=== PATIENT | male | born 1995 | race Asian ===

== ENCOUNTER → 2018-04-13 | Outpatient (CLI) | payer BC | END | disposition home or self-care (01) | LOC: RAD 12:42 | DX: S13.4XXA Sprain of ligaments of cervical spine, initial encounter (principal); X58.XXXA Exposure to other specified factors, initial encounter | CPT/HCPCS: 72050 ==

== ENCOUNTER 2018-06-08 18:51 | Emergency (ER) | payer BC | END 2018-06-08 21:52 | disposition home or self-care (01) | LOC: FTE 18:51 | DX: S39.012A Strain of muscle, fascia and tendon of lower back, initial encounter (principal); R40.2252 Coma scale, best verbal response, oriented, at arrival to emergency department; R40.2362 Coma scale, best motor response, obeys commands, at arrival to emergency department; R40.2142 Coma scale, eyes open, spontaneous, at arrival to emergency department; V49.40XA Driver injured in collision with unspecified motor vehicles in traffic accident, initial encounter; Z87.891 Personal history of nicotine dependence | CPT/HCPCS: 72100; 73550; 99284-25 ==

== ENCOUNTER 2019-02-20 11:47 | Inpatient (IN) | payer BC ==
[2019-02-20] MEDS: DICYCLOMINE 10 MG CAP PO (12:33)
[2019-02-20] MEDS: LIDOCAINE/MYLANTA 40 ML BTL PO (12:34)
[2019-02-20] MEDS: SOD CHLORIDE 0.9% 1,000 ML IV ×2 (13:31→15:15)
[2019-02-20 13:38] LABS: ADD MAN DIFF? NO
[2019-02-20 13:41] LABS: BASOPHILS % 0.3 % (0.0-2.0); HEMATOCRIT 43.9 % (42.0-52.0); HEMOGLOBIN 15.1 g/dl (14.0-18.0); LYMPHOCYTES # 1.3 10^3/ul (0.8-2.9); LYMPHOCYTES % 8.1 % (15.0-51.0); MEAN CORPUSCULAR HEMOGLOBIN 30.3 pg (29.0-33.0); MEAN CORPUSCULAR HGB CONC 34.4 g/dl (32.0-37.0); MEAN PLATELET VOLUME 9.8 fl (7.4-10.4); MONOCYTE # 1.4 10^3/ul (0.3-0.9); NEUTROPHIL # 12.9 10^3/ul (1.6-7.5); NEUTROPHILS % 82.1 % (39.0-77.0); PLATELET COUNT 154 10^3/UL (140-415); RED BLOOD COUNT 4.99 10^6/ul (4.70-6.10); RED CELL DISTRIBUTION WIDTH 11.5 % (11.5-14.5)
[2019-02-20 13:41] LABS: WHITE BLOOD COUNT 15.6 10^3/ul (4.8-10.8)
[2019-02-20 13:50] LABS: ADD UMIC YES; UR ASCORBIC ACID NEGATIVE (NEGATIVE); UR BILIRUBIN (Dip) NEGATIVE (NEGATIVE); UR BLOOD (Dip) NEGATIVE (NEGATIVE); UR CLARITY CLEAR (CLEAR); UR COLOR AMBER (YELLOW); UR GLUCOSE (Dip) NEGATIVE (NEGATIVE); UR KETONES (Dip) TRACE mg/dL (NEGATIVE); UR LEUKOCYTE ESTERASE (Dip) NEGATIVE Leu/ul (NEGATIVE); UR MUCUS MODERATE /HPF (NONE SEEN); UR NITRITE (Dip) NEGATIVE (NEGATIVE); UR RBC 2 /HPF (0-5); UR SPECIFIC GRAVITY (Dip) 1.023 (1.003-1.030); UR TOTAL PROTEIN (Dip) 1+ mg/dl (NEGATIVE); UR UROBILINOGEN (Dip) 2+ mg/dL (NEGATIVE); UR WBC 3 /HPF (0-5)
[2019-02-20 14:06] LABS: ALANINE AMINOTRANSFERASE 22 IU/L (13-69); ALBUMIN 4.6 g/dl (3.3-4.9); ALBUMIN/GLOBULIN RATIO 1.06; ALKALINE PHOSPHATASE 59 IU/L (42-121); ANION GAP 9 (5-13); ASPARTATE AMINO TRANSFERASE 18 IU/L (15-46); BILIRUBIN,INDIRECT 2.5 mg/dl (0-1.1); BILIRUBIN,TOTAL 2.5 mg/dl (0.2-1.3); BLOOD UREA NITROGEN 11 mg/dl (7-20); CALCIUM 9.2 mg/dl (8.4-10.2); CARBON DIOXIDE 32 mmol/L (21-31); CHLORIDE 95 mmol/L (97-110); CREATININE 0.84 mg/dl (0.61-1.24); Estimated GFR > 60 mL/min (>60); GLUCOSE 107 mg/dl (70-220); LIPASE 33 U/L (23-300); SODIUM 136 mmol/L (135-144); TOTAL PROTEIN 8.9 g/dl (6.1-8.1)
[2019-02-20] MEDS: morphine 4 MG/ML VIAL IV (15:15)
[2019-02-20] MEDS: PIPER-TAZO 3.375 GM IV (PMX) 100 ML IVPB ×2 (15:26→20:30)
[2019-02-20] MEDS: ONDANSETRON 4 MG INJ IV (15:26)
[2019-02-20] MEDS ORDERED: ACETAMINOPHEN 325 MG TAB PO (16:30)
[2019-02-20] MEDS ORDERED: ONDANSETRON 4 MG INJ IV ×2 (16:30→19:00)
[2019-02-20] MEDS ORDERED: ACETAMINOPHEN 650 MG SUPP PR (19:00)
[2019-02-20] MEDS: D5W-0.45 NACL + KCL 20 MEQ 1,000 ML IV (19:09)
[2019-02-20] MEDS: morphine 2 MG INJ IV (19:09)
[2019-02-20 20:17] LABS: INR 1.18; PROTIME 15.1 Sec (11.9-14.9); PT RATIO 1.2
[2019-02-20 20:18] LABS: PARTIAL THROMBOPLASTIN TIME 42.7 Sec (23.0-35.0)
[2019-02-21] MEDS: LIDOCAINE 1%/EPI 30 ML INJ
[2019-02-21] MEDS: BUPIVACAINE 0.25% (MPF) 30 ML INJ
[2019-02-21] MEDS: PIPER-TAZO 3.375 GM IV (PMX) 100 ML IVPB ×4 (02:09→19:31)
[2019-02-21 04:53] LABS: ADD MAN DIFF? NO
[2019-02-21] MEDS: D5W-0.45 NACL + KCL 20 MEQ 1,000 ML IV ×3 (05:00→15:00)
[2019-02-21 05:04] LABS: BASOPHILS % 0.4 % (0.0-2.0); EOSINOPHILS # 0.1 10^3/ul (0.0-0.5); EOSINOPHILS % 0.5 % (0.0-7.0); HEMATOCRIT 35.5 % (42.0-52.0); HEMOGLOBIN 12.1 g/dl (14.0-18.0); LYMPHOCYTES # 1.6 10^3/ul (0.8-2.9); LYMPHOCYTES % 17.4 % (15.0-51.0); MEAN CORPUSCULAR HEMOGLOBIN 30.1 pg (29.0-33.0); MEAN CORPUSCULAR HGB CONC 34.1 g/dl (32.0-37.0); MEAN CORPUSCULAR VOLUME 88.3 fl (82.0-101.0); MEAN PLATELET VOLUME 10.4 fl (7.4-10.4); MONOCYTES % 10.5 % (0.0-11.0); NEUTROPHIL # 6.6 10^3/ul (1.6-7.5); NEUTROPHILS % 70.9 % (39.0-77.0); PLATELET COUNT 119 10^3/UL (140-415); RED BLOOD COUNT 4.02 10^6/ul (4.70-6.10); RED CELL DISTRIBUTION WIDTH 11.5 % (11.5-14.5)
[2019-02-21 05:04] LABS: WHITE BLOOD COUNT 9.4 10^3/ul (4.8-10.8)
[2019-02-21 05:30] LABS: ALANINE AMINOTRANSFERASE 61 IU/L (13-69); ALBUMIN 3.4 g/dl (3.3-4.9); ALBUMIN/GLOBULIN RATIO 1.06; ALKALINE PHOSPHATASE 49 IU/L (42-121); ANION GAP 3 (5-13); ASPARTATE AMINO TRANSFERASE 47 IU/L (15-46); BILIRUBIN,INDIRECT 2.7 mg/dl (0-1.1); BILIRUBIN,TOTAL 2.7 mg/dl (0.2-1.3); BLOOD UREA NITROGEN 9 mg/dl (7-20); CALCIUM 8.1 mg/dl (8.4-10.2); CARBON DIOXIDE 30 mmol/L (21-31); CHLORIDE 104 mmol/L (97-110); CREATININE 0.81 mg/dl (0.61-1.24); Estimated GFR > 60 mL/min (>60); GLUCOSE 112 mg/dl (70-220); POTASSIUM 3.9 mmol/L (3.5-5.1); SODIUM 137 mmol/L (135-144); TOTAL PROTEIN 6.6 g/dl (6.1-8.1)
[2019-02-21] MEDS: morphine 2 MG INJ IV ×5 (07:51→23:29)
[2019-02-21] MEDS ORDERED: MIDAZOLAM 1 MG/ML 2 ML INJ (17:12)
[2019-02-21] MEDS ORDERED: FENTAnyl 50 MCG/ML VIAL ×2 (17:12→19:29)
[2019-02-21] MEDS ORDERED: ACETAMINOPHEN 325 MG TAB PO (17:30)
[2019-02-21] MEDS ORDERED: PIPER-TAZO 3.375 GM IV (PMX) 100 ML IVPB (18:00)
[2019-02-21] MEDS ORDERED: ROPIVACAINE 0.5 % 30 ML VIAL (18:22)
[2019-02-21] MEDS ORDERED: GLYCOPYRROLATE 0.4 MG INJ (18:41)
[2019-02-21] MEDS ORDERED: ROCURONIUM 50 MG INJ (18:41)
[2019-02-21] MEDS ORDERED: NEOSTIGMINE 3 MG/3 ML SYRINGE (18:41)
[2019-02-21] MEDS ORDERED: PROPOFOL 20 ML (18:41)
[2019-02-21] MEDS ORDERED: LIDOCAINE 2% (SDV) 5 ML INJ (18:41)
[2019-02-21] MEDS ORDERED: ONDANSETRON 4 MG INJ (18:44)
[2019-02-21] MEDS ORDERED: SUGAMMADEX SODIUM 200 MG/2 ML VIAL IV (19:01)
[2019-02-21] MEDS ORDERED: MEPERIDINE 100 MG INJ (19:04)
[2019-02-21] MEDS ORDERED: KETOROLAC 30 MG INJ IV (19:30)
[2019-02-21] MEDS ORDERED: DIPHENHYDRAMINE 50 MG INJ IV (19:30)
[2019-02-21] MEDS ORDERED: MEPERIDINE 25 MG INJ IV (19:30)
[2019-02-21] MEDS ORDERED: ONDANSETRON 4 MG INJ IV (19:30)
[2019-02-21] MEDS ORDERED: HYDROmorphONE 1 MG/5 ML IV SYRINGE IV ×2 (19:30)
[2019-02-21] MEDS ORDERED: METOCLOPRAMIDE 10 MG INJ IV (19:30)
[2019-02-21] MEDS: FENTAnyl 50 MCG/ML VIAL IV ×3 (19:40→20:02)
[2019-02-21] MEDS: D5-NS + KCL 20 MEQ 1,000 ML IV (21:37)
[2019-02-22] MEDS: PIPER-TAZO 3.375 GM IV (PMX) 100 ML IVPB ×4 (02:15→20:43)
[2019-02-22] MEDS: morphine 2 MG INJ IV ×3 (02:20→07:08)
[2019-02-22] MEDS: D5-NS + KCL 20 MEQ 1,000 ML IV ×3 (03:10→23:10)
[2019-02-22 05:05] LABS: ADD MAN DIFF? NO
[2019-02-22 05:07] LABS: BASOPHILS % 0.2 % (0.0-2.0); EOSINOPHILS % 0.2 % (0.0-7.0); HEMATOCRIT 37.5 % (42.0-52.0); HEMOGLOBIN 12.5 g/dl (14.0-18.0); LYMPHOCYTES # 1.2 10^3/ul (0.8-2.9); LYMPHOCYTES % 12.3 % (15.0-51.0); MEAN CORPUSCULAR HGB CONC 33.3 g/dl (32.0-37.0); MEAN CORPUSCULAR VOLUME 89.9 fl (82.0-101.0); MEAN PLATELET VOLUME 10.7 fl (7.4-10.4); MONOCYTE # 0.7 10^3/ul (0.3-0.9); MONOCYTES % 7.2 % (0.0-11.0); NEUTROPHIL # 7.7 10^3/ul (1.6-7.5); NEUTROPHILS % 79.8 % (39.0-77.0); PLATELET COUNT 141 10^3/UL (140-415); RED BLOOD COUNT 4.17 10^6/ul (4.70-6.10); RED CELL DISTRIBUTION WIDTH 11.4 % (11.5-14.5)
[2019-02-22 05:07] LABS: WHITE BLOOD COUNT 9.7 10^3/ul (4.8-10.8)
[2019-02-22 05:52] LABS: ALANINE AMINOTRANSFERASE 52 IU/L (13-69); ALBUMIN 3.7 g/dl (3.3-4.9); ALBUMIN/GLOBULIN RATIO 1.19; ALKALINE PHOSPHATASE 54 IU/L (42-121); ANION GAP 8 (5-13); ASPARTATE AMINO TRANSFERASE 37 IU/L (15-46); BILIRUBIN,INDIRECT 1.5 mg/dl (0-1.1); BILIRUBIN,TOTAL 1.5 mg/dl (0.2-1.3); BLOOD UREA NITROGEN 5 mg/dl (7-20); CALCIUM 8.5 mg/dl (8.4-10.2); CARBON DIOXIDE 29 mmol/L (21-31); CHLORIDE 99 mmol/L (97-110); CREATININE 0.93 mg/dl (0.61-1.24); Estimated GFR > 60 mL/min (>60); GLUCOSE 112 mg/dl (70-220); POTASSIUM 3.8 mmol/L (3.5-5.1); SODIUM 136 mmol/L (135-144); TOTAL PROTEIN 6.8 g/dl (6.1-8.1)
[2019-02-22] MEDS: ENOXAPARIN 40 MG/0.4 ML SYG SC (07:00)
[2019-02-22] MEDS: HYDROCODONE/APAP (5/325) TAB PO ×3 (09:07→22:25)
[2019-02-22] MEDS ORDERED: POLYETHYLENE GLYCOL 17 GM PACKET PO (12:30)
[2019-02-22] MEDS: DOCUSATE SODIUM 100 MG CAP PO ×2 (12:40→20:43)
[2019-02-22] MEDS: IBUPROFEN 600 MG TAB PO (12:40)
[2019-02-22] MEDS: ONDANSETRON 4 MG INJ IV (18:36)
[2019-02-23] MEDS: PIPER-TAZO 3.375 GM IV (PMX) 100 ML IVPB ×3 (02:23→14:00)
[2019-02-23] MEDS: HYDROCODONE/APAP (5/325) TAB PO ×2 (04:34→19:51)
[2019-02-23 05:27] LABS: ADD MAN DIFF? NO
[2019-02-23 05:30] LABS: WHITE BLOOD COUNT 5.9 10^3/ul (4.8-10.8)
[2019-02-23 05:30] LABS: BASOPHILS % 0.3 % (0.0-2.0); EOSINOPHILS # 0.1 10^3/ul (0.0-0.5); EOSINOPHILS % 2.4 % (0.0-7.0); HEMATOCRIT 32.3 % (42.0-52.0); HEMOGLOBIN 10.7 g/dl (14.0-18.0); LYMPHOCYTES # 1.3 10^3/ul (0.8-2.9); LYMPHOCYTES % 21.8 % (15.0-51.0); MEAN CORPUSCULAR HEMOGLOBIN 29.8 pg (29.0-33.0); MEAN CORPUSCULAR HGB CONC 33.1 g/dl (32.0-37.0); MEAN PLATELET VOLUME 10.7 fl (7.4-10.4); MONOCYTE # 0.6 10^3/ul (0.3-0.9); MONOCYTES % 9.8 % (0.0-11.0); NEUTROPHIL # 3.9 10^3/ul (1.6-7.5); NEUTROPHILS % 65.5 % (39.0-77.0); PLATELET COUNT 131 10^3/UL (140-415); RED BLOOD COUNT 3.59 10^6/ul (4.70-6.10); RED CELL DISTRIBUTION WIDTH 11.5 % (11.5-14.5)
[2019-02-23 06:17] LABS: ALANINE AMINOTRANSFERASE 38 IU/L (13-69); ALBUMIN 3.4 g/dl (3.3-4.9); ALBUMIN/GLOBULIN RATIO 1.13; ALKALINE PHOSPHATASE 44 IU/L (42-121); ANION GAP 8 (5-13); ASPARTATE AMINO TRANSFERASE 23 IU/L (15-46); BILIRUBIN,INDIRECT 1.1 mg/dl (0-1.1); BILIRUBIN,TOTAL 1.1 mg/dl (0.2-1.3); BLOOD UREA NITROGEN 5 mg/dl (7-20); CALCIUM 8.7 mg/dl (8.4-10.2); CARBON DIOXIDE 31 mmol/L (21-31); CHLORIDE 99 mmol/L (97-110); CREATININE 0.96 mg/dl (0.61-1.24); Estimated GFR > 60 mL/min (>60); GLUCOSE 81 mg/dl (70-220); POTASSIUM 3.9 mmol/L (3.5-5.1); SODIUM 138 mmol/L (135-144); TOTAL PROTEIN 6.4 g/dl (6.1-8.1)
[2019-02-23] MEDS: LIDOCAINE 1% (MDV) 20 ML INJ SC ×2 (08:09→18:45)
[2019-02-23] MEDS: DOCUSATE SODIUM 100 MG CAP PO (08:30)
[2019-02-23] MEDS: IBUPROFEN 600 MG TAB PO (08:36)
[2019-02-23] MEDS: D5-NS + KCL 20 MEQ 1,000 ML IV ×2 (09:10→18:17)
[2019-02-23] MEDS ORDERED: LIDOCAINE 1% (MDV) 20 ML INJ (17:55)
[2019-02-23 18:55] LABS: HEMOGLOBIN 11.7 g/dl (14.0-18.0)
== END 2019-02-23 20:18 | disposition home or self-care (01) | DRG 419 ==
LOC: FTE 11:47 → MS1 16:03
PROC: 0FT44ZZ Resection of Gallbladder, Percutaneous Endoscopic Approach (ICD-10-PCS; principal; 2019-02-21 17:00)
DX: K80.00 Calculus of gallbladder with acute cholecystitis without obstruction (principal)
CPT/HCPCS: 36415; 74181; 76705; 78226; 80053; 81001; 83690; 85014; 85018; 85025; 85610; 85730; 87040-91; 88304; 96374; 96375; 99285-25